=== PATIENT | female | born 1960 | race Caucasian/White ===

== ENCOUNTER 2016-08-23 17:58 | Emergency (ER) | payer MEDICAID ==
[2016-08-23 18:03] VITALS: BP 118/72; PULSE 71; RESP 17; TEMP 98.3; O2SAT 100
--- NOTE | 2016-08-23 18:20 | ED PDOC ---
Upper Extremity Pain/Injury Time Seen by Provider: 08/23/16 18:09 Chief Complaint (Nursing): Finger,Hand,&Wrist Chief Complaint (Provider): finer injury History Per: Patient History/Exam Limitations: no limitations Additional Complaint(s): 55yo D in ED with injury to left hand 3rd digt sustained yesterday now with swelling and dec ROM to digit with discoloration. Right hand dominant. Past Medical History Reviewed: Historical Data, Nursing Documentation, Vital Signs Vital Signs: Last Vital Signs Temp 98.3 F 08/23/16 18:01 Pulse 71 08/23/16 18:01 Resp 17 08/23/16 18:01 BP 118/72 08/23/16 18:01 Pulse Ox 100 08/23/16 18:01 - Medical History PMH: Asthma Denies: Chronic Kidney Disease - Family History Family History: States: No Known Family Hx - Immunization History Hx Tetanus Toxoid Vaccination: Yes Hx Influenza Vaccination: Yes Hx Pneumococcal Vaccination: Yes - Home Medications Home Medications: Ambulatory Orders Medication Instructions Recorded Albuterol HFA [Ventolin HFA 90 2 puff PO PRN 12/14/14 mcg/actuation (8 g)] Fluticasone/Salmeterol 250/50 14 puff PO ACHS PRN 12/14/14 [Advair Diskus 250/50] Nabumetone [Relafen] 1 tab PO DAILY 12/14/14 LORazepam [Ativan] 0.5 mg PO BID PRN #10 tab 12/15/14 Prednisone 40 mg PO DAILY 5 Days 12/15/14 Ibuprofen [Motrin] 400 mg PO Q6 #30 tab 08/23/16 - Allergies Allergies/Adverse Reactions: Allergies Allergy/AdvReac Type Severity Reaction Status Date / Time No Known Allergies Allergy Verified 12/14/14 17:40 Review of Systems ROS Statement: Except As Marked, All Systems Reviewed And Found Negative Musculoskeletal: Positive for: Hand Pain Physical Exam - Reviewed Nursing Documentation Reviewed: Yes Vital Signs Reviewed: Yes - Physical Exam Appears: Positive for: Well, Non-toxic, No Acute Distress Skin: Positive for: Normal Color, Warm, DRY Extremity: Positive for: Other (left hand: 3rd digit swelling to DIP discoloration dec ROM. nuerovascc intact) Neurologic/Psych: Positive for: Alert, Oriented - ECG O2 Sat by Pulse Oximetry: 100 - Radiology X-Ray: Interpreted by Ne X-Ray Interpretation: No Acute Disease Medical Decision Making Medical Decision Making: dx: finger sprain tx: motrin and finger splint (metal) with anamaria monsivais pmd Disposition - Clinical Impression Clinical Impression: Finger sprain - Patient ED Disposition Is Patient to be Admitted: No Counseled Patient/Family Regarding: Diagnosis, Need For Followup, Rx Given - Disposition Disposition: Routine/Home Disposition Time: 18:20 Condition: GOOD Prescriptions: Ibuprofen [Motrin] 400 mg PO Q6 #30 tab Instructions: Finger Sprain (ED)
--- NOTE | 2016-08-24 11:44 | RAD ---
PROCEDURE: Left Hand Radiographs. HISTORY: injury COMPARISON: None. FINDINGS: BONES: Normal. No fracture. JOINTS: Normal. No osteoarthritic changes. SOFT TISSUES: Normal. OTHER FINDINGS: None. IMPRESSION: Normal left hand radiographs.
== END 2016-08-23 19:32 | disposition home or self-care (01) ==
LOC: H.ER 17:58
DX: S63.403A Traumatic rupture of unspecified ligament of left middle finger at metacarpophalangeal and interphalangeal joint, initial encounter (principal); X58.XXXA Exposure to other specified factors, initial encounter; J45.909 Unspecified asthma, uncomplicated

== ENCOUNTER 2018-05-20 06:21 | Day surgery (SDC) | payer MEDICAID ==
[2018-05-20 07:13] VITALS: RESP 18
[2018-05-20] MEDS ORDERED: MethylPREDNISolone Depo 40 mg/ml Inj ONE (07:14)
[2018-05-20] MEDS ORDERED: Bupivacaine HCl 0.25% PF (30 ml) Inj ONE (07:14)
[2018-05-20] MEDS ORDERED: Bupivacaine HCl 0.5% PF (10 ml) Inj ONE (07:14)
[2018-05-20] MEDS ORDERED: Iohexol 300 10 ML ONE (07:14)
[2018-05-20] MEDS ORDERED: Lidocaine 1% Inj (20ml) ONE (07:14)
[2018-05-20 07:15] VITALS: BMI 24.7
[2018-05-20] MEDS ORDERED: Lactated Ringer's 1,000 ML IV ONE (07:25)
--- NOTE | 2018-05-20 07:35 | CP.SDSHP ---
Same Day Surgery H & P - History Proposed Procedure: Lumbar medial branch nerve blocks Pre-Op Diagnosis: Lumbar spondylosis - Previous Medical/Surgical History Pulmonary: Emphysema/COPD Pain: 8.Very Severe - Allergies Allergies: Allergies No Known Allergies Allergy (Verified 05/20/18 07:15) - Physical Exam Vital Signs: Vital Signs 05/20/18 05/20/18 07:08 07:19 Temperature 98.3 F Pulse Rate 66 66 Respiratory 18 Rate Blood Pressure 129/89 O2 Sat by Pulse 98 Oximetry Neuro: WNL Heart: WNL Lungs: WNL GI: WNL - Impression Impression: Lumbar spondylosis Pt. Evaluated Today:Candidate for Anesthesia & Procedure: Yes Short Stay Discharge - Short Stay Discharge Admitting Diagnosis/Reason for Visit: M47.817 Disposition: HOME/ ROUTINE Referrals: Chandan Oquendo MD [Primary Care Provider] -
[2018-05-20] MEDS ORDERED: Midazolam 2 MG/2 ML VIAL ONE ×2 (08:09→08:15)
[2018-05-20] MEDS ORDERED: Bupivacaine HCl 0.5% PF (10 ml) Inj IJ ONE (08:18)
[2018-05-20] MEDS ORDERED: MethylPREDNISolone Depo 40 mg/ml Inj IM ONE (08:18)
[2018-05-20] MEDS ORDERED: Lidocaine 1% Inj (20ml) IJ ONE (08:18)
[2018-05-20] MEDS ORDERED: Sodium Bicarbonate 8.4% 10 MEQ/10 ML (PED) IV ONE (08:18)
[2018-05-20] MEDS ORDERED: HYDROmorphone 0.5 mg/0.5 ml ISec IVP PRN (08:30)
[2018-05-20 10:25] VITALS: TEMP 98
[2018-05-20 11:56] VITALS: BP 151/75; PULSE 80; O2SAT 99
--- NOTE | 2018-05-20 18:10 | RAD ---
Date of service: 05/20/2018 PROCEDURE: Fluoroscopy up to 1 hr. HISTORY: PAIN MANAGEMENT COMPARISON: None TECHNIQUE: Standard protocol for this study/examination. FINDINGS: Total fluoroscopic time (continuous mode) utilized during the procedure 20.4 seconds. Total exam DLP: 3.41 (mGy). IMPRESSION: Less than 1 hr fluoroscopic assistance provided during performance of the procedure.
--- NOTE | 2018-05-20 20:15 | OP ---
PROCEDURE DATE: 05/20/2018 PREOPERATIVE DIAGNOSIS: Lumbar spondylosis. POSTOPERATIVE DIAGNOSIS: Lumbar spondylosis. PROCEDURE: Right L3, L4 and L5 medial branch nerve block. ANESTHESIOLOGIST: Car Cortes MD SURGEON: Isatu Horne MD TYPE OF ANESTHESIA: Monitored anesthesia care. COMPLICATIONS: None. SPECIMEN: None. DESCRIPTION OF PROCEDURE: After we had discussion of the procedure with the patient including its risks, benefits, alternatives, outcome data, possibility of no effect or increased pain, the patient consented to the procedure. She denied any recent infection, bleeding tendencies or being on anticoagulants. The decision was then made to proceed to the OR. The patient was placed on the fluoroscopy table in a prone position with two pillows underneath her abdomen. The back was prepped and draped in the usual sterile fashion, and a sterile technique was adhered to during the entire procedure. The L3, L4 and L5 medial branch nerves were located at the intersection of the superior articular process and the transverse process of the L4 and L5 pedicles along with the sacral ala. The three above targeted areas were visualized on the right side by turning the fluoroscopy towards the right at approximately 15 degrees. The skin overlying the three above targeted areas was then infiltrated with 1% lidocaine using 25-gauge needle. Subsequently, a 25-gauge 3.5-inch spinal needle was then incrementally advanced under fluoroscopic guidance until tip of the needle made bony contact with all three targeted areas. After satisfactory positioning of all three needles, approximately 3 mL of 0.5% Marcaine and Depo-Medrol mixture was injected. The needle was then removed. The patient's back was cleaned, and dry bandage was applied. The patient was then transferred to the recovery area in good condition without any signs of [employer] toxicity or any neurological deficit. She will have a followup in office in approximately two to four weeks. Isatu Horne MD
== END 2018-05-20 11:15 | disposition home or self-care (01) ==
LOC: H.OPSURG 06:21
PROVIDERS: ATTEND Anesthesiology
DX: M47.817 Spondylosis without myelopathy or radiculopathy, lumbosacral region (principal); J44.9 Chronic obstructive pulmonary disease, unspecified; M47.816 Spondylosis without myelopathy or radiculopathy, lumbar region
CPT/HCPCS: 64493; J1030; J1885; J2250; J3010; J7120